=== PATIENT | male | born 1965 | race Two or more races ===

== ENCOUNTER → 2024-01-12 | Emergency (ER) | payer MEDICAID, OTHER ==
[~2024-01-12] VITALS: Ht 172.7 cm; Wt 74.9 kg
[~2024-01-12] MED LIST: AUG875T PO; HYDROcodone-ACET 5/325MG TAB PO ONE
[2024-01-12] MEDS: HYDROcodone-ACET 5/325MG TAB PO ONE (10:15)
[2024-01-12] MEDS: TETANUS-DIPTH-ACEL PERTUSSIS 0.5ML SYR Tdap IM ONE (10:15)
[2024-01-12 10:19] VITALS: BP 144/95; PULSE 70; RESP 16; TEMP 98.2; O2SAT 100
[2024-01-12] MEDS: MUPIROCIN 2% OINT 15gm or 22gm TOP ONE (10:19)
== END | disposition home or self-care (01) ==
LOC: ER 08:16
DX: S00.12XA Contusion of left eyelid and periocular area, initial encounter (principal); H57.89 Other specified disorders of eye and adnexa; W54.0XXA Bitten by dog, initial encounter; Y93.89 Activity, other specified; Y92.89 Other specified places as the place of occurrence of the external cause; Y99.8 Other external cause status
CPT/HCPCS: 70480; 90471; 90715